=== PATIENT | male | born 1945 | race Two or more races ===

== ENCOUNTER → 2024-03-28 | Outpatient (CLI) | payer MEDICARE, MEDICAID, SELFPAY ==
--- NOTE | 2024-03-28 | XR_ITS ---
Examination: Cystogram with KUB Fluoroscopy 14 spot fluoroscopic films of the bladder Exam date and time: The March 28, 2024 1337 hours INDICATIONS: Postop prostate surgery, assess of bladder integrity TECHNIQUE AND FINDINGS: Caustic Operator AP supine abdomen obtained, nonobstructive bowel gas pattern 14 spot fluoroscopic films of the bladder with administration 300 cc Cystografin Bladder intact No ureteral reflux IMPRESSION: Intact urinary bladder Fluoroscopy 0.10 minutes 14 spot fluoroscopic films of the bladder
[2024-03-28 14:37] LABS: Prostate Specific Antigen 0.53 ng/mL (0-4.00)
== END | disposition home or self-care (01) ==
LOC: CDIM 11:03 → COPL 12:47
PROVIDERS: PCP Urology; Referring Provider Urology; Visit Provider Radiology Diagnostic Radiology
DX: C61 Malignant neoplasm of prostate (principal)
CPT/HCPCS: 51600; 36415; 74430; 84153; Q9958

== ENCOUNTER → 2024-03-28 | Outpatient (BNVA) | payer MEDICARE, MEDICAID, SELFPAY | END | disposition home or self-care (01) | PROVIDERS: PCP Internal Medicine; Referring Provider Internal Medicine; Visit Provider Urology | DX: C61 Malignant neoplasm of prostate (principal); Z90.79 Acquired absence of other genital organ(s); Z87.891 Personal history of nicotine dependence | CPT/HCPCS: 51600; 36415; 74430; 84153; 99212; Q9958; G0463 ==

== ENCOUNTER → 2024-07-09 | Outpatient (CLI) | payer MEDICARE, MEDICAID, SELFPAY ==
[2024-07-09 15:42] LABS: Prostate Specific Antigen < 0.10 ng/mL (0-4.00)
== END | disposition home or self-care (01) ==
LOC: COPL 14:02
PROVIDERS: PCP Internal Medicine; Referring Provider Urology; Visit Provider Urology
DX: R97.20 Elevated prostate specific antigen [PSA] (principal)
CPT/HCPCS: 36415; 84153

== ENCOUNTER → 2024-07-15 | Outpatient (BNVA) | payer MEDICARE, MEDICAID, SELFPAY | END | disposition home or self-care (01) | PROVIDERS: PCP Internal Medicine; Referring Provider Internal Medicine; Visit Provider Urology | DX: C61 Malignant neoplasm of prostate (principal); R32 Unspecified urinary incontinence; N52.9 Male erectile dysfunction, unspecified; Z90.79 Acquired absence of other genital organ(s); E11.9 Type 2 diabetes mellitus without complications; I10 Essential (primary) hypertension; E66.9 Obesity, unspecified; Z68.37 Body mass index [BMI] 37.0-37.9, adult; Z87.891 Personal history of nicotine dependence | CPT/HCPCS: 81003; 99213; G0463 ==

== ENCOUNTER → 2024-12-03 | Outpatient (CLI) | payer MEDICARE, MEDICAID, SELFPAY ==
[2024-12-03 10:28] LABS: Prostate Specific Antigen < 0.10 ng/mL (0-4.00)
== END | disposition home or self-care (01) ==
LOC: COPL 09:05
PROVIDERS: PCP Internal Medicine; Referring Provider Urology; Visit Provider Urology
DX: C61 Malignant neoplasm of prostate (principal)
CPT/HCPCS: 36415; 84153

== ENCOUNTER → 2024-12-10 | Outpatient (BNVA) | payer MEDICARE, MEDICAID, SELFPAY | END | disposition home or self-care (01) | PROVIDERS: PCP Internal Medicine; Referring Provider Internal Medicine; Visit Provider Urology | DX: C61 Malignant neoplasm of prostate (principal); N39.3 Stress incontinence (female) (male); N52.9 Male erectile dysfunction, unspecified; E11.9 Type 2 diabetes mellitus without complications; I10 Essential (primary) hypertension; E66.9 Obesity, unspecified; Z68.36 Body mass index [BMI] 36.0-36.9, adult; Z90.79 Acquired absence of other genital organ(s) | CPT/HCPCS: 81003; 99212; G0463 ==

== ENCOUNTER → 2025-04-18 | Outpatient (CLI) | payer MEDICARE, MEDICAID, SELFPAY ==
[2025-04-18 13:47] LABS: Prostate Specific Antigen < 0.10 ng/mL (0-4.00)
== END | disposition home or self-care (01) ==
LOC: COPL 11:50
PROVIDERS: PCP Internal Medicine; Referring Provider Urology; Visit Provider Urology
DX: C61 Malignant neoplasm of prostate (principal)
CPT/HCPCS: 36415; 84153

== ENCOUNTER → 2025-04-22 | Outpatient (BNVA) | payer MEDICARE, MEDICAID, SELFPAY | END | disposition home or self-care (01) | PROVIDERS: PCP Internal Medicine; Referring Provider Internal Medicine; Visit Provider Urology | DX: C61 Malignant neoplasm of prostate (principal); Z90.79 Acquired absence of other genital organ(s); E11.9 Type 2 diabetes mellitus without complications; I10 Essential (primary) hypertension; E66.9 Obesity, unspecified; Z68.37 Body mass index [BMI] 37.0-37.9, adult | CPT/HCPCS: 81003; 99213; G0463 ==